=== PATIENT | male | born 1950 | race African-American/Black ===

== ENCOUNTER 2021-07-05 11:14 | Emergency (ER) | payer MEDICARE ==
[~2021-07-05] VITALS: Ht 175.3 cm; Wt 107.0 kg
[2021-07-05 12:06] LABS: HEMATOCRIT. 42.4 % (42.0-52.0); HEMOGLOBIN. 13.8 g/dL (14.0-18.0); MEAN CORPUSCULAR HEMOGLOBIN 26.2 pg (28.0-32.0); MEAN CORPUSCULAR VOLUME 80.2 fL (80.0-94.0); MEAN PLATELET VOLUME 8.9 fl (7.4-10.4); PLATELET 311 x1000/uL (130-400); RED BLOOD CELL COUNT 5.28 mill/uL (4.7-6.1); RED CELL DISTRIBUTION WIDTH 14.4 % (11.6-14.6)
[2021-07-05 12:26] LABS: CHLORIDE 101 mEq/L (98-107)
[2021-07-05 12:31] LABS: PLATELET ESTIMATE NORMAL
[2021-07-05] MEDS ORDERED: MORPHINE SULFATE 4 MG/ML CPJ (NOT FOR IM USE) IV STA ×2 (15:20→19:44)
[2021-07-05] MEDS ORDERED: ONDANSETRON HCL 4MG/2ML INJ IV STA ×2 (15:20→19:44)
[2021-07-05] MEDS ORDERED: NITROGLYCERIN OINT 1GM/INCH UDPKT TD ONE (15:30)
[2021-07-05] MEDS ORDERED: ASPIRIN 81MG TABLET PO ONE (15:30)
[2021-07-05] MEDS ORDERED: IOHEXOL-350 100 ML BOTTLE ONE (17:51)
[2021-07-05] MEDS ORDERED: NICARDIPINE 40MG/200ML PREMIX 200 ML IV STA ×2 (17:56→18:04)
[2021-07-05] MEDS ORDERED: NICARDIPINE 40MG/200ML PREMIX 200 ML IV NR (18:15)
[2021-07-05 19:57] VITALS: BP 124/77
== END 2021-07-05 20:10 | disposition short-term general hospital (02) ==
LOC: ER 11:14 → EDBEDREQ 15:40 → ER 20:10
DX: I71.02 Dissection of abdominal aorta (principal); I10 Essential (primary) hypertension; Z20.822 Contact with and (suspected) exposure to COVID-19
CPT/HCPCS: 36415; 71045; 71275; 80053; 83605; 83880; 84484; 85025; 85379; 86850; 86900; 86901; 87426; 93005; 93970; 96374; 96375; 96376; 99291; J2270; J2405; Q9967